=== PATIENT | female | born 1985 | race Caucasian/White ===

== ENCOUNTER 2019-08-26 17:42 | Inpatient (IN) | payer OTHER ==
[2019-08-26] MEDS ORDERED: IBUPROFEN 800 MG TABLET ONE (18:12)
--- NOTE | 2019-08-26 18:14 | Admission Physical ---
Datetime Report Generated by CPN: 08/26/2019 18:14 CURRENT ADMISSION Chief Complaint: Uterine Contractions Indication for Induction: Not Applicable Admit Impression : Term, Intrauterine Admit Plan: Admit to Unit OBSTETRICAL HISTORY EDC: 08/26/2019 00:00 (Annotations: Data stored by CPN on behalf of user) PHYSICAL EXAM General: Normal HEENT: Normal Neurologic: Normal Thyroid: Normal Heart: Normal Lungs: Normal Breast: Deferred Back: Normal Abdomen: Normal Genitourinary Exam: Normal Extremities: Normal DTRs: Normal Pelvic Type: Adequate FETUS A EGA: 40.0 Admit Comment: delivered in ER nurse attended INFORMED CONSENT Signature: with User ID: [email or web address]
[2019-08-26] MEDS ORDERED: BENZOCAINE/MENTHOL AEROSOL SPRAY 56 ML TOP PRN (18:21)
[2019-08-26] MEDS ORDERED: MAGNESIUM HYDROXIDE SUSP 30 ML UDCUP PO PRN (18:21)
[2019-08-26] MEDS ORDERED: PSEUDOEPHEDRINE HCL 30 MG TABLET PO PRN (18:21)
[2019-08-26] MEDS ORDERED: OXYTOCIN/NORMAL SALINE 20 UNIT/1,000 ML RTUINJ IV PRN (18:21)
[2019-08-26] MEDS ORDERED: ZOLPIDEM TARTRATE 5 MG TABLET PO PRN (18:21)
[2019-08-26] MEDS ORDERED: PROMETHAZINE HCL 25 MG TABLET PO PRN (18:21)
[2019-08-26] MEDS ORDERED: DIPHENHYDRAMINE HCL 25 MG CAPSULE PO PRN (18:21)
[2019-08-26] MEDS ORDERED: GLYCERIN/WITCH HAZEL LEAF 1 EACH MED..WIPE TP PRN (18:21)
[2019-08-26] MEDS ORDERED: DIBUCAINE 1% OINTMENT 56 GM TP PRN (18:21)
[2019-08-26] MEDS ORDERED: ACETAMINOPHEN 650 MG SUPP.RECT PR PRN (18:21)
[2019-08-26] MEDS ORDERED: PROMETHAZINE HCL 25 MG SUPP.RECT PR PRN (18:21)
[2019-08-26] MEDS ORDERED: DIPH/PERTUSS(ACELL)/TETANUS VAC/PF 0.5 ML SYR (>=10YO) IM PRN (18:21)
[2019-08-26] MEDS ORDERED: MEASLES,MUMPS&RUBELLA VACC/PF 0.5 ML VIAL SUBCUT PRN (18:21)
[2019-08-26] MEDS ORDERED: PROMETHAZINE HCL INJ 25 MG/1 ML VIAL IV PRN (18:21)
[2019-08-26] MEDS ORDERED: NA PHOS,M-B/NA PHOS,DI-BA (ADULT) 133 ML ENEMA PR PRN (18:21)
[2019-08-26] MEDS ORDERED: ACETAMINOPHEN WITH CODEINE #3 TABLET PO PRN (18:21)
[2019-08-26] MEDS ORDERED: OXYTOCIN 10 UNIT/ML VIAL ONE (18:26)
[2019-08-26 19:01] LABS: ABSOLUTE LYMPHOCYTES (AUTO) 0.9 10^3/uL (0.5-4.7); ABSOLUTE MONOCYTES (AUTO) 0.6 10^3/uL (0.1-1.4); ABSOLUTE NEUT (AUTO) 13.4 10^3/uL (1.7-8.2); BASOPHILS % (AUTO) 0.2 % (0-2); HEMATOCRIT 36.8 % (36.0-47.0); HEMOGLOBIN 12.3 g/dL (12.0-15.5); LYMPHOCYTES % (AUTO) 6.1 % (13-45); MEAN CORPUSCULAR HEMOGLOBIN 27.2 pg (27.0-33.4); MEAN CORPUSCULAR HGB CONC 33.4 g/dL (32.0-36.0); MEAN CORPUSCULAR VOLUME 82 fl (80-97); MONOCYTES % (AUTO) 4.2 % (3-13); PLATELET COUNT 291 10^3/uL (150-450); RED BLOOD COUNT 4.51 10^6/uL (3.72-5.28); RED CELL DISTRIBUTION WIDTH 13.8 % (11.5-14.0); SEGMENTED NEUTROPHILS % (AUTO) 89.5 % (42-78); TOTAL CELLS COUNTED % (AUTO) 100 %
[2019-08-26] MEDS ORDERED: BENZOCAINE/MENTHOL AEROSOL SPRAY 56 ML ONE (19:15)
--- NOTE | 2019-08-26 19:24 | Delivery Summary ---
Del Sum A-C Datetime Report Generated by CPN: 08/26/2019 19:24 DELIVERY PERSONNEL DELIVERY PERSONNEL: [id number] Delivery Doctor:: Leonard Denton MD Labor and Delivery Nurse:: Cassidy Gaspar RNl tacker Nurse:: Debby Montoya RN Nursery Nurse:: Ori Edmondson RN Nursery Nurse:: Fiona Bates RN MATERNAL INFORMATION Delivery Anesthesia: None Medications After Delivery: Pitocin 10 Units IM Estimated Blood Loss (ml): 150 Maternal Complications: Precipitous Labor (<3hrs) LABOR SUMMARY EDC: 08/26/2019 00:00 (Annotations: Data stored by [facility] on behalf of user) No. Babies in Womb: 1 Attempted: Yes Labor Anesthesia: None LABOR INFORMATION Reason for Induction: Not Applicable Onset of Labor: 08/26/2019 14:00 Complete Dilatation: 08/26/2019 17:40 Oxytocin: N/A Group B Beta Strep: negative Antibiotics # of Doses: 0 Steroids Given: None Reason Steroids Not Administered: Not Applicable MEMBRANES Membranes Rupture Method: Spontaneous Rupture of Membranes: 08/26/2019 17:30 Length of Rupture (hr): 0.32 Amniotic Fluid Color: Heavy Meconium Amniotic Fluid Amount: Small Amniotic Fluid Odor: Normal STAGES OF LABOR Stage 1 hr: 3 Stage 1 min: 40 Stage 2 hr: 0 Stage 2 min: 9 Stage 3 hr: 0 Stage 3 min: 4 Total Time in Labor hr: 3 Total Time in Labor min: 53 VAGINAL DELIVERY Episiotomy: None Laceration #1: Perineal Laceration Extension #1: N/A Other Laceration: Deep abrasion Laceration Repair: No Sponge Count Correct: Yes BABY A INFORMATION Delivery Date/Time: 08/26/2019 17:49 Method of Delivery: Vaginal Born in Route : No : Successful Forceps: N/A Vacuum Extraction: N/A Shoulder Dystocia : No PRESENTATION/POSITION BABY A Presentation: Cephalic Cephalic Presentation: Vertex Vertex Position: Left Occipital Anterior Breech Presentation: N/A PLACENTA INFORMATION BABY A Placenta Delivery Time : 08/26/2019 17:53 Placenta Method of Delivery: Spontaneous Placenta Status: Delivered SCORES BABY A Heart Rate 1 min: >100 bpm Resp Effort 1 min: Slow, Irregular Reflex Irritability 1 min: Cough or Sneeze or Pulls Away Muscle Tone 1 min: Active Motion Color 1 min: Body [place], Extremities Blue Resuscitation Effort 1 min: Tactile Stimulation SCORE 1 MIN: 8 Heart Rate 5 min: >100 bpm Resp Effort 5 min: Slow, Irregular Reflex Irritability 5 min: Cough or Sneeze or Pulls Away Muscle Tone 5 min: Active Motion Color 5 min: Body [place], Extremities Blue Resuscitation Effort 5 min: Tactile Stimulation SCORE 5 MIN: 8 INFANT INFORMATION BABY A Gestational Age at Delivery: 40.0 Gestational Status: Full Term- 39- 40.6 Weeks Infant Outcome : Liveborn Infant Condition : Stable Infant Sex: Male IDENTIFICATION BABY A Verification Date/Time: 08/26/2019 18:20 ID Band Number: [id number] Mother's Name Verified: Yes RN Verifying : Sabrina Gaspar RN Additional Verifying Personnel: R. Lindsay, RN WEIGHT/LENGTH BABY A Birthweight (gm): 3175 Weight (lb): 7 Weight (oz): 0 Length (in): 20.50 Length (cm): 52.07 CORD INFORMATION BABY A No. Cord Vessels: 3 Nuchal Cord : N/A Suction: Mouth; Nose ASSESSMENT BABY A Infant Complications: Meconium Physical Findings at Delivery: Within Normal Limits Respirations: Appears Normal Skin to Skin: Yes Skin to Skin Time (min): 20 Ergonomics Engineer/ALS Called : No Care By: O. Delvis, RN Transferred To: [place] [facility] BABY B INFORMATION : N/A SIGNATURES Signature: with User ID: [email or web address]
[2019-08-26] MEDS: FAMOTIDINE 20 MG TABLET PO SCH (22:52)
[2019-08-27] MEDS: IBUPROFEN 800 MG TABLET PO SCH ×3 (02:01→18:30)
[2019-08-27 08:57] LABS: HEMATOCRIT 35.4 % (36.0-47.0); HEMOGLOBIN 11.8 g/dL (12.0-15.5); MEAN CORPUSCULAR HEMOGLOBIN 27.2 pg (27.0-33.4); MEAN CORPUSCULAR HGB CONC 33.3 g/dL (32.0-36.0); MEAN CORPUSCULAR VOLUME 82 fl (80-97); PLATELET COUNT 296 10^3/uL (150-450); RED BLOOD COUNT 4.34 10^6/uL (3.72-5.28); RED CELL DISTRIBUTION WIDTH 13.9 % (11.5-14.0); WHITE BLOOD COUNT 15.5 10^3/uL (4.0-10.5)
[2019-08-27] MEDS: FERROUS SULFATE 325 MG TABLET PO SCH ×2 (10:21→18:30)
[2019-08-27] MEDS: SENNOSIDES/DOCUSATE 8.6-50 MG 1 EACH TABLET PO SCH (10:22)
[2019-08-27] MEDS: PRENATAL VITAMIN W DHA CAPSULE PO SCH (10:22)
[2019-08-27] MEDS: FAMOTIDINE 20 MG TABLET PO SCH ×2 (10:22→22:00)
--- NOTE | 2019-08-27 17:23 | PDOC PROGRESS REPORT ---
Subjective-OB Progress Note for:: 08/27/19 Subjective: reports bleeding slowing, pain controlled with current meds, denies needs Physical Exam (OB) Vital Signs: Temp Pulse Resp BP Pulse Ox 97.8 F 75 16 101/69 100 08/27/19 07:31 08/27/19 07:31 08/27/19 07:31 08/27/19 07:31 08/27/19 07:31 Intake & Output 08/26/19 08/27/19 08/28/19 06:59 06:59 06:59 Weight 70 kg - Abdomen Description: Soft, Round Hernia Present: No Fundal Description: Firm, Midline Fundal Height: u/u - u/2 - Abdominal Distension: No distension Tenderness: Nontender - Extremities Lower extremities: Ronaldo's sign - neg Calf: Normal, Nontender Objective-Diagnostic Laboratory: 08/27/19 07:47 08/26/19 08/26/19 08/27/19 18:47 18:47 07:47 WBC 15.0 H 15.5 H RBC 4.51 4.34 Hgb 12.3 11.8 L Hct 36.8 35.4 L MCV 82 82 MCH 27.2 27.2 MCHC 33.4 33.3 RDW 13.8 13.9 Plt Count 291 296 Seg Neutrophils % 89.5 H Blood Type B NEGATIVE Antibody Screen POSITIVE Assessment and Plan(PN) - Time Spent with Patient Time with patient: Less than 15 minutes Medications reviewed and adjusted accordingly: Yes - Disposition Anticipated Discharge: Home Within: within 24 hours
[2019-08-27] MEDS: DOCUSATE SODIUM 100 MG CAPSULE PO SCH ×2 (18:29)
[2019-08-28] MEDS: IBUPROFEN 800 MG TABLET PO SCH ×2 (02:30→09:10)
[2019-08-28 05:38] LABS: HEPATITIS C VIRUS AB <0.1 s/co ratio (0.0-0.9)
[2019-08-28] MEDS: DOCUSATE SODIUM 100 MG CAPSULE PO SCH (09:09)
[2019-08-28] MEDS: FAMOTIDINE 20 MG TABLET PO SCH (09:10)
[2019-08-28] MEDS: SENNOSIDES/DOCUSATE 8.6-50 MG 1 EACH TABLET PO SCH (09:10)
[2019-08-28] MEDS: PRENATAL VITAMIN W DHA CAPSULE PO SCH (09:10)
[2019-08-28] MEDS: FERROUS SULFATE 325 MG TABLET PO SCH (09:10)
[2019-08-28 09:44] VITALS: BP 122/79
--- NOTE | 2019-08-28 10:07 | PDOC DISCHARGE SUMMARY ---
Impression - Admit/DC Date/PCP Admission Date/Primary Care Provider: 08/26/19 18:08 Discharge Date: 08/28/19 - PP Day #2, s/p successful , precipitous delivery and delivered in the ER. B negative blood type, pt is . PNC down at [facility] - Discharge Diagnosis (1) Hx successful (vaginal after ), currently Is this a current diagnosis for this admission?: Yes (2) Precipitate labor, with delivery Is this a current diagnosis for this admission?: Yes (3) Normal course Is this a current diagnosis for this admission?: Yes - Additional Information Resuscitation Status: Full Code Discharge Diet: As Tolerated, Regular Discharge Activity: Activity As Tolerated, No Lifting Over 10 Pounds, Pelvic Rest [facility] [Provider Group] Prescriptions: Ibuprofen [Motrin 800 mg Tablet] 800 mg PO Q8A #60 tablet Home Medications: Ibuprofen [Motrin 800 mg Tablet] 800 mg PO Q8A #60 tablet 08/28/19 Vit/Dha [ Multi + Dha Capsule] 1 cap PO DAILY capsule 08/28/19 HPI Reason(s) for Admission: Onset of Labor Procedures: Ultrasound Intrapartum Procedure(s): Other - , precipitous delivery Hospital Course Hospital Course: routine Results Laboratory Results: WBC 15.5 10^3/uL (4.0-10.5) H 08/27/19 07:47 RBC 4.34 10^6/uL (3.72-5.28) 08/27/19 07:47 Hgb 11.8 g/dL (12.0-15.5) L 08/27/19 07:47 Hct 35.4 % (36.0-47.0) L 08/27/19 07:47 MCV 82 fl (80-97) 08/27/19 07:47 MCH 27.2 pg (27.0-33.4) 08/27/19 07:47 MCHC 33.3 g/dL (32.0-36.0) 08/27/19 07:47 RDW 13.9 % (11.5-14.0) 08/27/19 07:47 Plt Count 296 10^3/uL (150-450) 08/27/19 07:47 Lymph % (Auto) 6.1 % (13-45) L 08/26/19 18:47 [place] % (Auto) 4.2 % (3-13) 08/26/19 18:47 Eos % (Auto) 0.0 % (0-6) 08/26/19 18:47 Baso % (Auto) 0.2 % (0-2) 08/26/19 18:47 Absolute Neuts (auto) 13.4 10^3/uL (1.7-8.2) H 08/26/19 18:47 Absolute Lymphs (auto) 0.9 10^3/uL (0.5-4.7) 08/26/19 18:47 Absolute Monos (auto) 0.6 10^3/uL (0.1-1.4) 08/26/19 18:47 Absolute Eos (auto) 0.0 10^3/uL (0.0-0.6) 08/26/19 18:47 Absolute Basos (auto) 0.0 10^3/uL (0.0-0.2) 08/26/19 18:47 Seg Neutrophils % 89.5 % (42-78) H 08/26/19 18:47 RPR NONREACTIVE (NONREACTIVE) 08/26/19 18:47 Blood Type B NEGATIVE 08/26/19 18:47 Antibody Screen POSITIVE 08/26/19 18:47 Antibody Identification RHOGAM INDUCED ANTI-D 08/26/19 18:47 Plan Health Concerns: none Plan of Treatment: D/c to home, pt to follow up with her Ob care provider in 4-6 weeks for PP check-up
== END 2019-08-28 13:30 | disposition home or self-care (01) | DRG 807 ==
LOC: LC 17:42 → LR 18:08 → 2S 21:47
PROVIDERS: ADMIT Obstetrics & Gynecology Gynecology; ATTEND Obstetrics & Gynecology Gynecology
PROC: 10E0XZZ Delivery of Products of Conception, External Approach (ICD-10-PCS; principal; 2019-08-26)
DX: O62.3 Precipitate labor (principal); Z37.0 Single live birth; O77.0 Labor and delivery complicated by meconium in amniotic fluid; O70.0 First degree perineal laceration during delivery; O34.219 Maternal care for unspecified type scar from previous cesarean delivery; Z3A.40 40 weeks gestation of pregnancy
CPT/HCPCS: 36415; 85025; 85027; 86592; 86803; 86804; 86850; 86870; 86900; 86901; J2590; J3490